=== PATIENT | male | born 1960 | race African-American/Black ===

== ENCOUNTER → 2020-01-07 | Outpatient (CLI) | payer OTHER ==
--- NOTE | 2020-01-07 09:44 | RAD ---
EXAM: Right lower extremity venous Doppler sonogram. HISTORY: Pain and. TECHNIQUE: [place] scale and color Doppler sonographic evaluation of the right lower extremity veins with spectral waveform analysis was performed. FINDINGS: There is normal color flow, normal compressibility and there are normal spectral waveforms in the common femoral, superficial femoral, popliteal, posterior tibial and peroneal veins. IMPRESSION: No Doppler evidence of lower extremity deep venous thrombosis. Electronically signed by: Fawn Simmons MD (01/07/2020 9:41 AM) [id number]
== END ==
LOC: US 08:56
PROVIDERS: ATTEND Family Medicine
DX: M79.604 Pain in right leg (principal)
CPT/HCPCS: 93971

== ENCOUNTER → 2020-08-26 | Outpatient (CLI) | payer OTHER ==
--- NOTE | 2020-08-26 13:20 | RAD ---
EXAM: Bilateral knees, 2 views. HISTORY: Pain. COMPARISON: None. FINDINGS: 2 views of both knees are obtained. There is no fracture, dislocation or subluxation. There is slight enthesopathy along the superior left greater than right patellae. There are are tiny densities the overlying the right greater than left Hoffa's fat pads which demonstrate no clear correlate in the frontal view and may be tiny joint loose bodies. There is no joint effusion. IMPRESSION: 1. No acute osseous finding. 2. Possible tiny right greater than left knee joint loose bodies. Electronically signed by: Fawn Simmons MD (08/26/2020 1:17 PM) [id number]
== END ==
LOC: RAD 10:38
PROVIDERS: ATTEND Family Medicine
DX: M17.0 Bilateral primary osteoarthritis of knee (principal); M77.8 Other enthesopathies, not elsewhere classified
CPT/HCPCS: 73560